=== PATIENT | female | born 1965 | race Caucasian/White ===

== ENCOUNTER → 2019-08-01 07:41 | Outpatient (CLI) | payer MEDICAID, SELFPAY ==
--- NOTE | 2019-08-01 10:00 | PET_ITS ---
PROCEDURE: WHOLE BODY PET/CT SCAN, MID SKULL TO MID THIGH REASON FOR EXAM: Lung cancer, staging COMPARISON EXAMINATION: No available comparison studies.. TECHNIQUE: Following the intravenous administration of 16.05 mCi of F-18 the deoxyglucose, multiplanar imaging acquisitions of the neck, chest, abdomen/pelvis to the mid thigh, obtained at 1 hour post radiopharmaceutical administration. Interpretation is with co-registeration of similar anatomic distribution of CT. Findings: Normal and physiologic distribution of radioisotope identified in the expected intensity of the hepatic and splenic parenchyma, urinary tract and gastrointestinal structures. There is gross anatomic distribution of the intracranial contents. INDEX LESION SIZE SUV INTERPRETATION: 1. Thick-walled cavitary mass in the medial posterior right upper lobe measures 4.2 x 4.6 cm with peripheral dominant abnormal FDG activity (SUV 6.3). Localized soft tissue density in the medial anterior right upper lobe on CT image 77 of series 2 measures 1.7 x 1.5 cm with SUV measuring 6.3. Localized nodule (2.0 x 1.4 cm) of the lateral and posterior right upper lobe on image 82 has abnormal FDG activity measuring SUV 6.4. There is relative circumferential FDG activity involving the periphery of the right lung/contiguous pleural surface, best seen on image 78 of series 6. 2. Focal borderline increased activity of the lateral right seventh rib on image 109 series 5 with SUV measuring 1.8. No correlating sclerotic or lytic lesion. CT portion of the exam: Generalized volume loss of the right upper lobe with scattered interstitial and somewhat micronodular densities. No pleural effusion. Normal heart and pericardium. There is mild cardiac enlargement. There are multiple small lymph nodes within the mediastinum, which are normal in size and morphology most compatible with reactive lymph hyperplasia. The superior right hilum is inseparable from contiguous right upper lobe mass.Normal unenhanced pulmonary arteries. There is atherosclerotic calcification of the aortic arch with tortuosity and elongation of the aortic arch and descending thoracic aorta. Normal liver. Normal gallbladder and extrahepatic biliary system. Normal spleen. Normal pancreas. Normal bilateral adrenal glands. Normal right kidney. Normal left kidney. Normal visualized stomach. Normal small intestine. No colon wall thickening. There is non-visualization of the appendix. There is diffuse atherosclerotic calcification of the abdominal aorta, without a demonstrated aneurysm. Normal inferior vena cava. Normal urinary bladder. Normal osseous structures. PET/PET/CT Tumor Base -Thigh Subs IMPRESSION: 1. ABNORMAL EXAMINATION. Thick walled cavitary mass in the medial posterior right upper lobe contiguous with the mediastinum meets criteria for viable neoplasm. Multifocal nodules of the right upper lobe also meeting criteria for viable neoplasm (detailed above) with circumferential FDG activity involving the right upper lobe suggesting pleural metastasis. 2. Focal increased activity of the lateral right seventh rib does not meet criteria for viable neoplasm. No correlating lytic or sclerotic bone lesion. 3. No prior study available to evaluate for interval change. 4. Chronic changes, as detailed above. Electronically Signed: Chava Oscar MD ([place]) at 16:30 EDT , Service support ,
== END ==
DX: C34.11 Malignant neoplasm of upper lobe, right bronchus or lung (principal)
CPT/HCPCS: 78815; A9552

== ENCOUNTER → 2022-06-10 | Outpatient (CLI) | payer MEDICAID, SELFPAY ==
--- NOTE | 2022-06-10 11:30 | PET_ITS ---
EXAMINATION: FDG PET/CT ? INDICATIONS: 56-year-old female with a history of primary lung carcinoma, presenting for restaging examination. ? COMPARISON EXAMINATION: Prior FDG PET CT study dated 08/01/2019 ? INDEX LESION SIZE SUV INTERPRETATION PERSISTENT Right upper lung field, right upper lobe 8.1 cm compared to 9.2 cm, 08/01/2019 4.5 compared to 7.0, 08/01/2019 Fulfills quantitative criteria for viable neoplasm, interim metabolic improvement-quantitative partial metabolic response ? PREVIOUS Additional right upper lung hypermetabolic foci ? ? Demonstrate metabolic resolution on the current examination TECHNIQUE: Following the intravenous administration of 14.08 mCi of F-18 deoxyglucose via the right antecubital fossa, multiplanar image acquisitions of the neck, chest, abdomen and pelvis to the level of the midthigh, obtained at one-hour post radiopharmaceutical administration contemporaneously interpreted with FDG PET CT study dated 08/01/2019 reveal: ? SERUM GLUCOSE LEVEL:? 90 mg/dL? HEIGHT:?? 64 inches WEIGHT:?? 100 pounds ? FINDINGS: ? HEAD/NECK:? There is no evidence of abnormal increased glucose metabolism in the pharyngeal mucosal space, parapharyngeal space, oropharynx, bilateral-lateral and anterior neck, hypopharynx and distribution of the larynx. Prominent uptake is noted in the anterior aspect of the oral cavity, likely representing a component of activated leukocytes associated with dental caries formation. ? The visualized portion of the cerebral cortical-subcortical structures demonstrate symmetric and preserved glucose metabolism. ? CHEST:? Increased FDG concentration is redefined in the right upper lung field, right upper lobe extending from the anterior to posterior pleural interface. The current calculated maximum standard uptake value is 4.5 compared to 7.0. The maximal axial diameter of the metabolic, morphologic abnormality is 8.1 cm compared to 9.2 cm. A component of central photopenia remains evident in the right upper medial lung zone, which demonstrates some increase in maximal axial diameter on the current examination.? There is visualized radiopharmaceutical concentration noted in the left ventricular myocardium, consistent with the [place].? Prominent radiopharmaceutical concentration is defined in the descending thoracic aorta commensurate with activated leukocytes associated with atherosclerotic plaque formation. ? CT of the chest demonstrates the following anatomic characteristics: Atherosclerotic calcification is defined in the thoracic aorta without evidence of dilatation, aneurysm formation. Coronary arterial calcification is observed. Calcification is defined within the dense right breast tissue. Subcentimeter mediastinal soft tissue densities are nonglucose avid. Paraseptal emphysematous changes are defined in the bilateral upper-mid lung zones. ? ABDOMEN/PELVIS:? Normal physiologic distribution of the radiopharmaceutical is identified in the hepatic (2.4/1.8) and splenic parenchyma, both renal units, urinary bladder, and visualized intestinal tract. Diffuse intestinal tract is identified in all four quadrants of the abdomen and pelvis. Prominent renal collecting system is identified in the bilateral renal units. ? CT of the abdomen and pelvis is remarkable for the following: Atherosclerotic calcification is defined in the abdominal aorta without evidence of dilatation, aneurysm formation. Pelvic arterial calcification is observed. Calcified phlebolith formation is noted in the bilateral lower hemipelvis. Subcentimeter right and left inguinal soft tissue densities demonstrate no evidence of increased glucose avidity. ? SKELETAL:? There is no evidence of quantitatively significant enhanced glucose metabolism on meticulous inspection of the appendicular and axial skeletal structures. ? Degenerative changes defined in the thoracic and lumbar spine demonstrate no evidence of increased glucose metabolism. There are no sclerotic, mixed sclerotic-lytic, or primarily lytic changes defined in the axial skeletal structures with evidence of increased FDG uptake. ? PET/PET/CT Tumor Base -Thigh Subs IMPRESSION: 1. Increased radiopharmaceutical concentration redefined in the right upper lung, right upper lobe fulfills quantitative criteria for viable neoplasm (Negra et al, Journal of Nuclear Medicine 31:1950, 1990). 2. The prior defined additional right upper lobe hypermetabolic foci is not apparent on the current examination. 3. Overall, compared to the prior FDG PET CT study dated 08/01/2019, there is apparent continued demonstration of viable neoplasm within the right upper lobe, manifesting interim improvement-quantitative partial metabolic response in the appropriate clinical context. There is interim resolution of the prior defined additional right upper lobe hypermetabolic foci. ? Electronic Signature Victor M Dial D.O. Accurate Quantification of SUVs for this report are calculated using the exclusive [employer]. ([place]. Patent No. [id number] B2 [phone] patent [phone]). Standardization and correction of the FDG SUV metric via [employer] technology allow for vendor non-specific objective quantitative examination comparison and optimization of the sensitivity and specificity of the FDG PET-CT examination. . Electronically Signed: Victor M Dial, at 22:36 EST ,
== END | disposition home or self-care (01) ==
LOC: ONC 10:55
PROVIDERS: Referring Provider Internal Medicine Hematology & Oncology; Visit Provider Internal Medicine Hematology & Oncology
DX: C34.01 Malignant neoplasm of right main bronchus (principal); C34.11 Malignant neoplasm of upper lobe, right bronchus or lung
CPT/HCPCS: 78815; A9552

== ENCOUNTER → 2023-01-27 | Outpatient (CLI) | payer MEDICAID, SELFPAY ==
--- NOTE | 2023-01-27 10:00 | PET_ITS ---
EXAMINATION: FDG PET-CT INDICATIONS: A 57-year-old female with history of primary lung carcinoma presenting for restaging examination. COMPARISON EXAMINATION: Prior FDG PET-CT report dated 06/10/22 INDEX LESION SIZE SUV INTERPRETATION Right upper lung, right upper lobe 7.7-cm comp to 8.1 cm (06/10/22) 3.0 comp to 4.5 (06/10/22) Quantitative criteria for viable neoplasm are not fulfilled TECHNIQUE: Following the intravenous administration of 13.59 mCi of F-18 deoxyglucose via the left wrist, multiplanar image acquisitions of the neck, chest, abdomen and pelvis to level of mid thigh, obtained at one hour post radiopharmaceutical administration contemporaneously interpreted with the current CT of the neck, chest, abdomen and pelvis, to level of mid thigh, dated 01/27/23 via coregistration and FDG PET-CT report dated 06/10/22 reveals: BLOOD GLUCOSE LEVEL:?? 90 mg/dl?HEIGHT:?64 inches?WEIGHT: 88 lbs. FINDINGS: Head/Neck: There is no evidence of abnormal increased glucose metabolism in the pharyngeal mucosal space, parapharyngeal space, bilateral-lateral and anterior neck, hypopharynx and distribution of the laryngeal structures. The visualized portion of the cerebral cortical-subcortical structures demonstrate symmetric and preserved glucose metabolism. CHEST: Persistent increased tracer uptake is noted in the right upper lung field, right upper lobe, circumferential in presentation with central photopenia. The current calculated maximal standard uptake value is 3.0, compared to 4.5. The maximal axial diameter of the metabolic, morphologic abnormality is presently 7.7-cm, compared to 8.1-cm. Prominent radiopharmaceutical concentration is identified in the left ventricular myocardium commensurate with [place]. Previously defined morphologic-anatomic changes noted on review of CT of the chest dated 06/10/22, are essentially unchanged on the current examination. Abdomen/Pelvis: Normal physiologic distribution of the radiopharmaceutical is apparent in the hepatic (2.5/2.4) and splenic parenchyma, both renal units, bladder and visualized intestinal tract. Review of CT of the abdomen and pelvis dated 06/10/22 demonstrates no significant interval change. Skeletal: Degenerative changes are noted in the cervical, thoracic and lumbar spine without evidence of increased radiopharmaceutical concentration. PET/PET/CT Tumor Base -Thigh Subs IMPRESSION: 1. The persistent increase in radiopharmaceutical concentration defined in the right upper lung field, right upper lobe does not fulfill quantitative criteria for malignant transformation with single point technique. (Negra et al, Journal of Nuclear Medicine 43:302 P, 2002). 2. No other quantitatively significant abnormalities are encountered. 3. Overall, compared to the prior FDG PET-CT study dated 06/10/22, there is current absence of defined viable neoplastic disease with an interim quantitative complete metabolic response regarding the right upper lung field, right upper lobe hypermetabolic focus. Electronic Signature Victor M Dial D.O. Accurate Quantification of SUVs for this report are calculated using the exclusive [employer], ([place]. Patent No. [id number] [id number] [phone] patent [phone] ). Standardization and correction of the FDG SUV metric exclusively available with [employer] intellectual property, allow for vendor non-specific objective quantitative sequential FDG PET-CT comparison and otherwise unobtainable optimization of the sensitivity and specificity of the examination. [email or web address] Electronically Signed: Victor M Dial DO at 20:46 EDT ,
== END | disposition home or self-care (01) ==
PROVIDERS: Referring Provider Specialist; Visit Provider Specialist
DX: C34.01 Malignant neoplasm of right main bronchus (principal)
CPT/HCPCS: 78815; A9552